=== PATIENT | male | born 1955 | race Caucasian/White ===

== ENCOUNTER 2018-06-25 02:54 | Emergency (ER) | payer BC ==
[~2018-06-25] VITALS: Ht 170.2 cm; Wt 102.1 kg
[2018-06-25 03:03] VITALS: BP 124/81; Ht 170.2 cm; Wt 102.1 kg
== END 2018-06-25 04:09 | disposition home or self-care (01) ==
LOC: ED 02:54
DX: K12.2 Cellulitis and abscess of mouth (principal)
CPT/HCPCS: J7512